=== PATIENT | male | born 1960 | race Caucasian/White ===

== ENCOUNTER 2019-01-19 06:13 | Day surgery (SDC) | payer OTHER ==
[~2019-01-19] VITALS: Ht 175.3 cm; Wt 150.0 kg
[~2019-01-19 06:13] MED LIST: AMLO10 PO; Aspir 8181 MG PO; Lisinopril2.5 MG PO; METO25ER PO
--- NOTE | 2019-01-19 09:21 | NUR ---
PT AMBULATES TO RESTROOM AND BACK, BLEEDING NOTED FROM R RADIAL TR BAND. 2CC OF AIR INFLATED. NO ACTIVE BLEEDING AT THIS TIME. VSS. NADN. S/O AT BEDSIDE. CALL LIGHT WITHIN REACH.
--- NOTE | 2019-01-19 09:50 | NUR ---
ADMINISTERED FENTANYL 25MCG IV AFTER PT REPORTS R RADIAL PAIN 12/24. VSS. R RADIAL TR BAND STABLE. CALL LIGHT WITHIN REACH.
--- NOTE | 2019-01-19 09:58 | NUR ---
PT RESTING MORE COMFORTABLY, VSS. NADN. PT REPORTS PAIN HAS LESSENED. CALL LIGHT WITHIN REACH.
--- NOTE | 2019-01-19 11:55 | NUR ---
PT AIR FULLY DEFLATED FROM TR BAND. NO BLEEDING OR HEMATOMA NOTED. VSS. NADN. PT AND S/O VERBALIZES UNDERSTANDING WRITTEN AND VERBAL ORDERS. PT DENIES QUESTIONS.
--- NOTE | 2019-01-19 12:25 | NUR ---
PT TR BAND REMOVED. DOT DRESSING IN PLACE. NO BLEEDING OR HEMATOMA NOTED. SPLINT/SLING IN PLACE. IV DC'D. CATH INTACT. PRESSURE DSG IN PLACE. PT ESCORTED TO DOOR VIA WC
== END 2019-01-19 13:12 | disposition home or self-care (01) ==
LOC: MHTC 06:13
DX: R07.9 Chest pain, unspecified (principal); R06.00 Dyspnea, unspecified
CPT/HCPCS: 93454; 99152; 99153; C1769; C1894; J1644; J2250; J3010; J7030; Q9967

== ENCOUNTER 2019-06-22 06:53 | Day surgery (SDC) | payer OTHER ==
[~2019-06-22] VITALS: Ht 172.7 cm; Wt 65.2 kg
--- NOTE | 2019-06-22 08:02 | NUR ---
06/22/19 0802 Felipe Cristina History, Chart, Medications and Allergies reviewed before start of procedure.MONITOR INTACT WITH CONTINUOUS PULSE OXIMETRY AND INTERMITTENT BP.3-LEAD EKG REVIEWED WITH PHYSICIAN PRIOR TO START OF PROCEDURE.O2 VIA N/C INTACT THROUGHOUT SEDATION/PROCEDURE. PATIENT DETERMINED TO BE ASA APPROPRIATE FOR PROPOFOL SEDATION PRIOR TO START OF PROCEDURE BY DR. PAREDES.
== END 2019-06-22 09:33 | disposition home or self-care (01) ==
LOC: ORSCMMR 06:53 → ORD 08:00 → ORSCMMR 09:33
PROVIDERS: Internal Medicine Gastroenterology
PROC: 0DB68ZX Excision of Stomach, Via Natural or Artificial Opening Endoscopic, Diagnostic (ICD-10-PCS; principal; 2019-06-22 08:00)
PROC: 0DBN8ZX Excision of Sigmoid Colon, Via Natural or Artificial Opening Endoscopic, Diagnostic (ICD-10-PCS; principal; 2019-06-22 08:00)
PROC: 0DB98ZX Excision of Duodenum, Via Natural or Artificial Opening Endoscopic, Diagnostic (ICD-10-PCS; principal; 2019-06-22 08:00)
PROC: 0DBL8ZX Excision of Transverse Colon, Via Natural or Artificial Opening Endoscopic, Diagnostic (ICD-10-PCS; principal; 2019-06-22 08:00)
PROC: 0DB58ZX Excision of Esophagus, Via Natural or Artificial Opening Endoscopic, Diagnostic (ICD-10-PCS; principal; 2019-06-22 08:00)
DX: R10.13 Epigastric pain (principal); K70.30 Alcoholic cirrhosis of liver without ascites; K29.80 Duodenitis without bleeding; Z12.11 Encounter for screening for malignant neoplasm of colon; K29.70 Gastritis, unspecified, without bleeding; D12.3 Benign neoplasm of transverse colon; D12.5 Benign neoplasm of sigmoid colon; I10 Essential (primary) hypertension; Z79.899 Other long term (current) drug therapy; Z79.82 Long term (current) use of aspirin
CPT/HCPCS: 88305; 88342; J2704; J7120

== ENCOUNTER 2023-10-28 18:50 | Emergency (ER) | payer OTHER ==
[~2023-10-28] VITALS: Ht 172.7 cm; Wt 63.5 kg
[2023-10-28 19:33] LABS: BASOPHILS ABSOLUTE AUTO 0.06 K/mm3 (0.00-0.23); BASOPHILS PERCENT AUTO 1 % (0-2); EOSINOPHILS ABSOLUTE AUTO 0.17 K/mm3 (0.00-0.68); EOSINOPHILS PERCENT AUTO 2 % (0-6); Hematocrit 37.4 % (37.0-53.0); Hemoglobin 12.1 g/dL (13.5-17.5); IMMATURE GRAN ABSOLUTE AUTO 0.02 K/mm3 (0.00-0.10); IMMATURE GRAN PERCENT AUTO 0 % (0-1); LYMPHOCYTES ABSOLUTE AUTO 2.17 K/mm3 (0.84-5.20); LYMPHOCYTES PERCENT AUTO 26 % (21-46); MONOCYTES ABSOLUTE AUTO 0.75 K/mm3 (0.16-1.47); MONOCYTES PERCENT AUTO 9 % (4-13); Mean Corpuscular HGB 27.7 pg (26.0-34.0); Mean Corpuscular HGB Conc 32.4 g/dL (31.5-36.5); Mean Corpuscular Volume 86 fL (80-100); Mean Platelet Volume 9.1 fL (9.1-12.4); NEUTROPHILS ABSOLUTE AUTO 5.35 K/mm3 (1.96-9.15); NEUTROPHILS PERCENT AUTO 63 % (41-73); Platelet Count 248 K/mm3 (150-400); RDW Coefficient Variation 13.7 % (11.7-14.2); RDW Standard Deviation 42.6 fL (35.1-46.3); Red Blood Cell Count 4.37 M/mm3 (4.30-5.90); White Blood Cell Count 8.52 K/mm3 (4.00-11.30)
[2023-10-28 19:36] LABS: Source, Urine Clean Catch
[2023-10-28 19:39] LABS: Appearance, Urine Hazy (Clear); Bilirubin, Urine Neg (Neg); Blood, Urine 1+ (Neg); Color, Urine Yellow (P-Yellow); Glucose Qualitative, Urine Neg (Neg); Ketones, Urine 1+ (Neg); Leukocyte Esterase, Urine 1+ (Neg); Nitrite, Urine Neg (Neg); Protein, Urine 1+ (Neg); Urobilinogen, Urine 2+ (Normal)
[2023-10-28 19:50] LABS: Albumin, Blood 3.2 g/dL (3.4-5.0); Albumin/Globulin Ratio 0.6 (0.8-1.8); Bilirubin, Total 0.4 mg/dL (0.1-1.0); Bun/Creatinine Ratio 20.1 (12.0-20.0); Calcium, Blood 9.8 mg/dL (8.5-10.1); Creatinine, Blood 0.7 mg/dL (0.60-1.20); Globulin, Blood 5.3 g/dL (2.2-4.0); Potassium, Blood 4.1 mmol/L (3.5-5.5); Total Protein, Blood 8.5 g/dL (6.4-8.2)
[2023-10-28 20:27] LABS: Bacteria Mod /hpf; Mucus Light (0-Heavy); Red Blood Cells, Urine 0-2 /hpf (0-2); Squamous Epithelial Cells Rare /hpf (Few); White Blood Cells, Urine 0-2 /hpf (0-5)
[2023-10-28 20:28] LABS: Amorphous Light (0-Heavy); Hyaline Casts 0-2 /lpf (0-2)
[2023-10-28] MEDS ORDERED: Ketorolac Tromethamine 30mg Vial IV ONE (21:45)
[2023-10-29 00:49] VITALS: BP 128/85
== END 2023-10-29 00:52 | disposition home or self-care (01) ==
LOC: ER 18:50
PROVIDERS: Emergency Medicine
DX: R10.11 Right upper quadrant pain (principal); R10.13 Epigastric pain; R07.89 Other chest pain; Z79.899 Other long term (current) drug therapy; F17.200 Nicotine dependence, unspecified, uncomplicated
CPT/HCPCS: 71045; 74177; 80053; 81001; 83690; 84484; 85025; 87086; 93005; 93010; 96374-59; 99284-25; J1885; Q9967